=== PATIENT | male | born 1990 | race Caucasian/White ===

== ENCOUNTER 2018-01-06 15:26 | Inpatient (IN) ==
[2018-01-06 17:51] LABS: Baso # (Auto) 0.1 th/mm3 (0.0-0.2); Baso % (Auto) 0.6 % (0.0-2.0); Eos # (Auto) 0.1 th/mm3 (0.0-0.4); Eos % (Auto) 1.2 % (0.0-4.0); Hematocrit 45.5 % (39.0-51.0); Hemoglobin 15.9 gm/dL (13.0-17.0); Lymph % (Auto) 20.7 % (9.0-44.0); Mean Corpuscular Volume 88.4 fL (80.0-100.0); Mean Platelet Volume 7.7 fL (7.0-11.0); Mono # (Auto) 0.7 th/mm3 (0.0-0.9); Mono % (Auto) 7.6 % (0.0-8.0); Neut # (Auto) 6.6 th/mm3 (1.8-7.7); Neut % (Auto) 69.9 % (16.0-70.0); Platelet Count 259 th/mm3 (150-450); Red Blood Count 5.15 mil/mm3 (4.50-5.90); Red Cell Distribution Width 12.8 % (11.6-17.2); White Blood Count 9.5 th/mm3 (4.0-11.0)
[2018-01-06 18:10] LABS: Albumin 3.8 g/dL (3.4-5.0); Anion Gap 8 meq/L (5-15); Aspartate Aminotransferase 13 U/L (15-37); Blood Urea Nitrogen 16 mg/dL (7-18); Calcium 9.3 mg/dL (8.5-10.1); Carbon Dioxide 27.8 meq/L (21.0-32.0); Chloride 107 meq/L (98-107); Glomerular Filtration Rate 77 mL/min (>89); Glucose,Random 81 mg/dL (74-106); Potassium 3.4 meq/L (3.5-5.1); Sodium 143 meq/L (136-145)
[2018-01-06 18:14] LABS: Alanine Aminotransferase 26 U/L (12-78); Alkaline Phosphatase 76 U/L (45-117); Total Protein 7.8 g/dL (6.4-8.2)
--- NOTE | 2018-01-06 20:43 | ED ---
HPI General Chief complaint: Psychiatric Symptoms Stated complaint: Psych Eval Time Seen by Provider: 01/06/18 20:23 History of Present Illness HPI narrative: Patient is a 27-year-old male presents emergency department for evaluation of hearing voices. He states that he is hearing the WIFI talked to him. Patient states he was just released from [facility] on [place] yesterday as he was [place] because he was causing disturbance in a public park. The patient is homeless and was sleeping overnight in that part. He states his been in [place] for 7 years and traveled [facility]. Does not have a primary care physician her primary psychiatrist. States his been taking his Seroquel however he has an empty bottle on a prescription from [facility] which she has not yet filled. Denies any physical complaints , denies any chest pain shortness breath abdominal pain nausea vomiting diarrhea. Onset (ago): year(s) Severity: mild Pain Consistency: constant Relieving factors: none Exacerbating factors: none Related Data Home Medications Medication Instructions Recorded Confirmed propranolol 80 mg PO DAILY 12/28/17 12/28/17 quetiapine [Seroquel] 400 mg PO HS 12/28/17 12/28/17 topiramate [Topamax] 50 mg PO BID 12/28/17 12/28/17 Allergies Allergy/AdvReac Type Severity Reaction Status Date / Time penicillin G Allergy Severe Anaphylaxis Verified 12/28/17 23:53 Review of Systems Except as stated in HPI: all other systems reviewed are negative PMFSH Social History Social History Substance History: Active Abuse Smoking Status: Current every day smoker Tobacco Type: Cigarettes How Often Do You Have a Drink Containing Alcohol: Monthly or less Recent Travel in [facility] within the Last 8 Weeks: No Recent Out of Country Travel within the Last 8 Weeks: No Substance Abuse Detail Marijuana: Substance Use Status: Active Route Used Substance Abuse: Inhalation Immunization History Tetanus Immunization: >5 Years Hx Influenza Vaccine This Season: No Exam Narrative Exam Narrative: GENERAL: Well-developed well-nourished no obvious distress. SKIN: Focused skin assessment warm/dry. HEAD: Atraumatic. Normocephalic. EYES: Pupils equal and round. No scleral icterus. No injection or drainage. ENT: No nasal bleeding or discharge. Mucous membranes pink and moist. NECK: Trachea midline. No JVD. CARDIOVASCULAR: Regular rate and rhythm. No murmur appreciated. RESPIRATORY: No accessory muscle use. Clear to auscultation. Breath sounds equal bilaterally. GASTROINTESTINAL: Abdomen soft, non-tender, nondistended. Hepatic and splenic margins not palpable. MUSCULOSKELETAL: No obvious deformities. No clubbing. No cyanosis. No edema. NEUROLOGICAL: Awake and alert. No obvious cranial nerve deficits. Motor grossly within normal limits. Normal speech. PSYCHIATRIC: Endorses auditory hallucinations. Endorsed SI. No planning. Course Initial Documented Vital Signs Temperature 97.3 F L 01/06/18 15:29 Pulse Rate 107 H 01/06/18 15:29 Respiratory Rate 18 01/06/18 15:29 Blood Pressure 171/99 H 01/06/18 15:29 Pulse Oximetry 97 01/06/18 15:29 Last Documented Vital Signs Temperature 97.3 F L 01/06/18 15:29 Pulse Rate 107 H 01/06/18 15:29 Respiratory Rate 18 01/06/18 15:29 Blood Pressure 171/99 H 01/06/18 15:29 Pulse Oximetry 97 01/06/18 15:29 Medical Decision Making MDM Narrative Medical decision making narrative: Patient room to the emergency department, very vague complaints, only endorses suicidal ideation plan. Is a very vague suicidal ideation. I do not think he meets [place] criteria. He wants to see a psychiatrist on a voluntary basis. He is medically cleared to do so. Differential Diagnosis Differential Diagnosis: Poor social circumstance, schizophrenia, bipolar peer Lab Data Result diagrams: 01/06/18 16:20 01/06/18 16:20 Lab Results 01/06/18 01/06/18 01/07/18 Range/Units 16:20 16:20 00:20 WBC 9.5 (4.0-11.0) th/mm3 RBC 5.15 (4.50-5.90) mil/mm3 Hgb 15.9 (13.0-17.0) gm/dL Hct 45.5 (39.0-51.0) % MCV 88.4 (80.0-100.0) fL MCH 31.0 (27.0-34.0) pg MCHC 35.0 (32.0-36.0) % RDW 12.8 (11.6-17.2) % Plt Count 259 (150-450) th/mm3 MPV 7.7 (7.0-11.0) fL Neut % (Auto) 69.9 (16.0-70.0) % Lymph % (Auto) 20.7 (9.0-44.0) % [place] % (Auto) 7.6 (0.0-8.0) % Eos % (Auto) 1.2 (0.0-4.0) % Baso % (Auto) 0.6 (0.0-2.0) % Neut # (Auto) 6.6 (1.8-7.7) th/mm3 Lymph # (Auto) 2.0 (1.0-4.8) th/mm3 [place] # (Auto) 0.7 (0.0-0.9) th/mm3 Eos # (Auto) 0.1 (0.0-0.4) th/mm3 Baso # (Auto) 0.1 (0.0-0.2) th/mm3 WBC Differential . Differential Comment Auto diff final Sodium 143 (136-145) meq/L Potassium 3.4 L (3.5-5.1) meq/L Chloride 107 (98-107) meq/L Carbon Dioxide 27.8 (21.0-32.0) meq/L Anion Gap 8 (5-15) meq/L BUN 16 (7-18) mg/dL Creatinine 1.13 (0.60-1.30) mg/dL Estimated GFR 77 L (>89) mL/min Random Glucose 81 (74-106) mg/dL Calcium 9.3 (8.5-10.1) mg/dL Total Bilirubin 0.7 (0.2-1.0) mg/dL AST 13 L (15-37) U/L ALT 26 (12-78) U/L Alkaline Phosphatase 76 (45-117) U/L Total Protein 7.8 (6.4-8.2) g/dL Albumin 3.8 (3.4-5.0) g/dL Urine Color Yellow (Yellw/Straw) Urine Clarity Clear (Clear) Urine pH 5.0 (5.0-8.5) Ur Specific [place] 1.017 (1.002-1.035) Urine Protein Negative (Neg-Trace) mg/dL Urine Glucose (UA) Negative (Negative) mg/dL Urine Ketones Negative (Negative) mg/dL Urine Occult Blood Negative (Negative) Urine Nitrate Negative (Negative) Urine Bilirubin Negative (Negative) Urine Urobilinogen Less than 2 (Less than 2) mg/dL Ur Leukocyte Esterase Negative (Negative) Urine RBC Less than 1 (0-3) /hpf Urine WBC Less than 1 (0-5) /hpf Urine Mucus Few H (Occasional) /lpf Micro UA Comment Culture not ind Urine Culture Comments Culture not ind Discharge Plan Discharge Disposition Patient Disposition: 30 Still Patient Physicians Team ED Provider: Molina Victoria Primary Care Provider: Primary Care Suzettei,Darling Rxs /Orders / Referrals /Forms Prescriptions: No Action propranolol 80 mg Capsule,Extended Release 24 Hr 80 mg PO DAILY RF: 0 topiramate [Topamax] 50 mg Tablet 50 mg PO BID RF: 0 quetiapine [Seroquel] 400 mg Tablet 400 mg PO HS RF: 0 Status ED Status: Medically Cleared
[2018-01-07 01:11] LABS: Bilirubin,Urine Negative (Negative); Clarity,Urine Clear (Clear); Color,Urine Yellow (Yellw/Straw); Glucose,Urine (UA) Negative (Negative); Leukocyte Esterase,Urine Negative (Negative); Mucus,Urine Few /lpf (Occasional); Nitrite,Urine Negative (Negative); Specific Gravity,Urine 1.017 (1.002-1.035)
--- NOTE | 2018-01-07 14:18 | ED ---
HPI - Psych - General Source: patient Mode of arrival: ambulatory Limitations: no limitations - History of Present Illness MD complaint: other (paranoid) Onset (ago): day(s) Duration: constant, getting worse History of same: Yes Relieving factors: none Exacerbating factors: other (homelessness) Context: significant life stressor Associated psychiatric symptoms: auditory hallucinations, delusions Associated symptoms: shortness of breath Treatments prior to arrival: other (Patietn discharged from [facility] on january 05, 2018) - General Chief Complaint: Psychiatric Symptoms Stated Complaint: Psych Eval Time Seen by Provider: 01/07/18 13:25 - History of Present Illness HPI Narrative: History of Present Illness HPI narrative: Patient is a 27-year-old,single,male , homeless male, on SSI,no previous contact with [facility] psychiatry, with reported history of schizophrenia, multiple inpatient hospitalizations, who presents to emergency department for psychiatric evaluation and complaining of hearing voices. He states that he is hearing the WIFI talking to him and that people are watching him on camera. He believes that SMA was trying to poison him as well. he goes on to state that " I feel like I am going to snap and hurt someone because I cannot get the help I need. I don't think these medications are helping me". Patient states he was just released from [facility] yesterday as he was [place] [facility] because he was causing disturbance in a public park. The patient is homeless and was sleeping overnight in that park after he was released from sn[facility]. He states his been in [place] for 7 years and traveled all through the [facility]. ([place]) - Related Data Home Medications Medication Instructions Recorded Confirmed propranolol 80 mg PO DAILY 12/28/17 12/28/17 quetiapine [Seroquel] 400 mg PO HS 12/28/17 12/28/17 topiramate [Topamax] 50 mg PO BID 12/28/17 12/28/17 Allergies Allergy/AdvReac Type Severity Reaction Status Date / Time penicillin G Allergy Severe Anaphylaxis Verified 12/28/17 23:53 PMFSH - History History Provided By: Patient - Medical / Surgical Hx Neg / Unobtainable Medical Problems Denied: Yes (claims has hepatitis) Surgical History: No Previous Surgery - Medical History Medical History: Medical History (Last Reviewed 01/06/18 @ 20:16 by Yareli [place] RN) Hypertension Schizophrenia Seizures - Surgical History Surgical History: Surgical History (Last Reviewed 01/06/18 @ 20:16 by Yareli [place] RN) No history of previous surgery - Tobacco History Tobacco Use In Past 30 Days: Yes Smoking Status: Current every day smoker Tobacco Type: Cigarettes - Alcohol History How Often Do You Have a Drink Containing Alcohol: Monthly or less - Substance Use History Substance History: Active Abuse - Substance Use Type Marijuana Status: Active Route Used: Inhalation - Travel History Recent Travel in the [facility] Within the Last 8 Weeks: No Recent Travel Out of the Country Within the Last 8 Weeks: No - Immunization History Tetanus Immunization: >5 Years Hx Influenza Vaccine This Season: No Psychiatric History - Psychiatric History Psychiatric Treatment History: History of Psychiatric Treatment (reports has been taking psychiatric medication for the past 14 years. Does not provide name of previous providers.), History of Hospitalization in a Psychiatric Facility, History of Community Mental Health Treatment History of Inpatient Treatment: Yes (released from [facility] on january 05, 2018) Firearms in Home: No - Legal History Recent incarceration for loitering and resisting [employer] ([place]) - Family Psychiatric History None reported ([place]) Mental Status Examination Appearance: Disheveled Consciousness: Alert Orientation: x4 Motor Activity: Normal gait Speech: Unremarkable Language: Adequate Fund of Knowledge: Adequate Attention and Concentration: Adequate Memory: Unremarkable Mood: Anxious Affect: Anxious Thought Process & Associations: Intact Thought Content: Delusional (Wifi is talking to him, being watched on cameras) Hallucination Type: None Delusion Type: Paranoid Suicidal Ideation: No Suicidal Plan: No Homicidal Ideation: No Homicidal Plan: No Homicidal Intention: No Insight: Fair Judgment: Impulsive Initial Documented Vital Signs Temperature 97.3 F L 01/06/18 15:29 Pulse Rate 107 H 01/06/18 15:29 Respiratory Rate 18 01/06/18 15:29 Blood Pressure 171/99 H 01/06/18 15:29 Pulse Oximetry 97 01/06/18 15:29 Last Documented Vital Signs Temperature 97.9 F 01/07/18 09:30 Pulse Rate 67 01/07/18 09:30 Respiratory Rate 16 01/07/18 09:30 Blood Pressure 127/74 01/07/18 09:30 Pulse Oximetry 98 01/07/18 09:30 MDM - Psych - Lab Data Result diagrams: 01/06/18 16:20 01/06/18 16:20 - [facility] Narrative Medical decision making narrative: HPI narrative: Patient is a 27-year-old,single,male , homeless male with reported history of schizophrenia, multiple inpatient hospitalizations, who presents to emergency department voluntarily for psychiatric evaluation and complaining of hearing voices. He states that he is hearing the WIF[employer] talking to him and that people are watching him on camera. He believes that SMA was trying to poison him as well and is suspicious of taking the medication that was prescribed to him. He goes on to state that " I feel like I am going to snap and hurt someone because I cannot get the help I need. I don't think these medications are helping me" Vanda with no previous contact with [facility] psychiatry, reporting increase in paranoia, reporting feeling like he is going to snap and hurt someone due to believing that he is not getting the correct treatment or medication. Patient will be admitted to our inpatient psychiatric unit for further evaluation, safety and medication adjustment. ([place]) - Lab Data Lab Results 01/06/18 01/06/18 01/07/18 Range/Units 16:20 16:20 00:20 WBC 9.5 (4.0-11.0) th/mm3 RBC 5.15 (4.50-5.90) mil/mm3 Hgb 15.9 (13.0-17.0) gm/dL Hct 45.5 (39.0-51.0) % MCV 88.4 (80.0-100.0) fL MCH 31.0 (27.0-34.0) pg MCHC 35.0 (32.0-36.0) % RDW 12.8 (11.6-17.2) % Plt Count 259 (150-450) th/mm3 MPV 7.7 (7.0-11.0) fL Neut % (Auto) 69.9 (16.0-70.0) % Lymph % (Auto) 20.7 (9.0-44.0) % [place] % (Auto) 7.6 (0.0-8.0) % Eos % (Auto) 1.2 (0.0-4.0) % Baso % (Auto) 0.6 (0.0-2.0) % Neut # (Auto) 6.6 (1.8-7.7) th/mm3 Lymph # (Auto) 2.0 (1.0-4.8) th/mm3 [place] # (Auto) 0.7 (0.0-0.9) th/mm3 Eos # (Auto) 0.1 (0.0-0.4) th/mm3 Baso # (Auto) 0.1 (0.0-0.2) th/mm3 WBC Differential . Differential Comment Auto diff final Sodium 143 (136-145) meq/L Potassium 3.4 L (3.5-5.1) meq/L Chloride 107 (98-107) meq/L Carbon Dioxide 27.8 (21.0-32.0) meq/L Anion Gap 8 (5-15) meq/L BUN 16 (7-18) mg/dL Creatinine 1.13 (0.60-1.30) mg/dL Estimated GFR 77 L (>89) mL/min Random Glucose 81 (74-106) mg/dL Calcium 9.3 (8.5-10.1) mg/dL Total Bilirubin 0.7 (0.2-1.0) mg/dL AST 13 L (15-37) U/L ALT 26 (12-78) U/L Alkaline Phosphatase 76 (45-117) U/L Total Protein 7.8 (6.4-8.2) g/dL Albumin 3.8 (3.4-5.0) g/dL Urine Color Yellow (Yellw/Straw) Urine Clarity Clear (Clear) Urine pH 5.0 (5.0-8.5) Ur Specific [employer] 1.017 (1.002-1.035) Urine Protein Negative (Neg-Trace) mg/dL Urine Glucose (UA) Negative (Negative) mg/dL Urine Ketones Negative (Negative) mg/dL Urine Occult Blood Negative (Negative) Urine Nitrate Negative (Negative) Urine Bilirubin Negative (Negative) Urine Urobilinogen Less than 2 (Less than 2) mg/dL Ur Leukocyte Esterase Negative (Negative) Urine RBC Less than 1 (0-3) /hpf Urine WBC Less than 1 (0-5) /hpf Urine Mucus Few H (Occasional) /lpf Micro UA Comment Culture not ind Urine Culture Comments Culture not ind
[2018-01-07] MEDS ORDERED: Aluminum/Magnesium/Simethacone Susp 30 ML UDC PO PRN (14:24)
[2018-01-07] MEDS ORDERED: Bisacodyl 10 MG Supp RECTAL PRN (14:24)
[2018-01-07] MEDS ORDERED: LORazepam 1 MG Tablet PO PRN (14:24)
[2018-01-07 19:21] LABS: Amphetamine Screen,Urine Neg (Neg); Barbiturate Screen,Urine Neg (Neg); Cannabinoid Screen,Urine Pos (Neg); Cocaine Screen,Urine Neg (Neg)
[2018-01-07 19:24] LABS: Opiate Screen,Urine Neg (Neg)
[2018-01-07] MEDS ORDERED: Senna/Docusate Sodium 8.6/50 MG Tablet PO SCH (21:00)
[2018-01-08 11:22] LABS: Calcium 9.1 mg/dL (8.5-10.1); Carbon Dioxide 23.5 meq/L (21.0-32.0); Potassium 3.5 meq/L (3.5-5.1)
[2018-01-08 11:32] LABS: Chol/HDL Ratio 2.9 Ratio; HDL Cholesterol 55.8 mg/dL (40.0-60.0); Thyroid Stimulating Hormone 1.03 uIU/mL (0.358-3.740)
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
[2018-01-08] MEDS: QUEtiapine 25 MG Tablet PO SCH ×2 (13:39→17:09)
[2018-01-08 16:00] LABS: Hemoglobin A1c 5.6 % (4.3-6.0)
[2018-01-09] MEDS: Acetaminophen 325 MG Tablet PO PRN ×2 (08:14→13:15)
[2018-01-09] MEDS: QUEtiapine 25 MG Tablet PO SCH ×3 (08:15→15:33)
[2018-01-09 09:28] LABS: Calcium 9.2 mg/dL (8.5-10.1); Carbon Dioxide 26.2 meq/L (21.0-32.0); Potassium 4.1 meq/L (3.5-5.1)
[2018-01-09 09:32] LABS: Chol/HDL Ratio 2.76 Ratio; HDL Cholesterol 56.5 mg/dL (40.0-60.0)
--- NOTE | 2018-01-09 11:36 | P.PNPSY ---
Subjective Chief Complaint: Schizophrenia, Paranoid Remarks: Chart reviewed. Rounded on patient with BASSAM Morrison. Patient is in day room waiting for lunch. He endorses some anxiety. He denies any auditory or visual hallucinations. Denies paranoia. Denies delusions. States that he slept really well last night and it is the first time he has feels rested in a long time. Staff reports that he is to religiously preoccupied. Appetite is good patient is medication compliant. Patient encouraged to participate in unit activities. Review of Systems All other systems reviewed negative except as stated in HPI Mental Status Examination Appearance: Appropriate Consciousness: Alert Orientation: x4 Motor Activity: Normal gait Speech: Unremarkable Language: Adequate Fund of Knowledge: Adequate Attention and Concentration: Adequate Memory: Unremarkable Mood: Anxious Affect: Other (Slight increased range and intensity) Thought Process & Associations: Intact Thought Content: Appropriate Hallucination Type: None Suicidal Ideation: No Suicidal Plan: No Suicidal Intention: No Homicidal Ideation: No Homicidal Plan: No Homicidal Intention: No Insight: Fair Judgment: Impulsive Assessment and Plan - Assessment (1) Schizophrenia, paranoid, chronic Code(s): F20.0 - Paranoid schizophrenia Status: Acute - Plan Plan: Estimated LOS: [] days At this time patient meets criteria for continued inpatient psychiatric hospitalization on a voluntary basis we will start the patient back on Seroquel as mentioned above. Hopeless be fairly short stay we can return to the community with follow-up [facility] act Justification for Continued Inpatient Stay: Patient is at risk for decompensation if placed in lower level of care. Discharge Planning: Patient is established at [facility] and will be referred to the outpatient clinic at time of discharge. Request Healthcare Surrogate/Guardian Advocate?: No
--- NOTE | 2018-01-09 15:20 | ECG ---
Date Performed: 01/08/2018 Time Performed: 13:34:42 PTAGE: 27 years EKG: Sinus rhythm POSSIBLE RIGHT VENTRICULAR CONDUCTION DELAY BORDERLINE ECG NO PREVIOUS TRACING DOCTOR: Miguelangel Carrillo Interpretating Date/Time 01/09/2018 15:19:12
[2018-01-09] MEDS: Aluminum/Magnesium/Simethacone Susp 30 ML UDC PO PRN (15:33)
[2018-01-10] MEDS: QUEtiapine 25 MG Tablet PO SCH ×3 (08:57→16:00)
[2018-01-10 12:05] LABS: Hemoglobin A1c 5.7 % (4.3-6.0)
--- NOTE | 2018-01-10 13:16 | P.PNPSY ---
Subjective Chief Complaint: Schizophrenia, Paranoid Remarks: Reviewed electronic medical records and discussed case with staff. Follow-up was conducted in patient's room. His nurse reports that he has been seclusive, compliant with medications and with no behavioral issues. Patient found lying in his bed. He reports that he slept well has good appetite. He does report increased anxiety and states that the Atarax has not been working. He endorses auditory and visual hallucinations but denies suicidal or homicidal ideation. Mental Status Examination Appearance: Appropriate Consciousness: Alert Orientation: x4 Motor Activity: Normal gait Speech: Unremarkable Language: Adequate Fund of Knowledge: Adequate Attention and Concentration: Adequate Memory: Unremarkable Mood: Anxious Affect: Other (Slight increased range and intensity) Thought Process & Associations: Intact Thought Content: Appropriate Hallucination Type: None Delusion Type: Paranoid Suicidal Ideation: No Suicidal Plan: No Suicidal Intention: No Homicidal Ideation: No Homicidal Plan: No Homicidal Intention: No Insight: Fair Judgment: Impulsive Assessment and Plan - Assessment (1) Schizophrenia, paranoid, chronic Code(s): F20.0 - Paranoid schizophrenia Status: Acute - Plan Plan: Patient will be reevaluated tomorrow by the attending psychiatrist. Continue with current treatment plan. Justification for Continued Inpatient Stay: Moving this patient to a less restrictive environment would likely result in decompensation. Request Healthcare Surrogate/Guardian Advocate?: No
[2018-01-10] MEDS: Acetaminophen 325 MG Tablet PO PRN (17:06)
[2018-01-11] MEDS: QUEtiapine 25 MG Tablet PO SCH ×3 (09:20→16:06)
[2018-01-11] MEDS: Acetaminophen 325 MG Tablet PO PRN (14:21)
[2018-01-11] MEDS: Aluminum/Magnesium/Simethacone Susp 30 ML UDC PO PRN (16:06)
--- NOTE | 2018-01-11 18:44 | P.PNPSY ---
Subjective Chief Complaint: Schizophrenia, Paranoid Remarks: Reviewed electronic medical records and discussed case with staff. Patient's follow-up was conducted in the hallway. Patient was seen wandering around the hallway internally stimulated and quite irritated. Reports that he is in the middle of a "spiritual warfare". His nurse reports he has been complaining of somatic type pains all day and of increased anxiety. He reports that the Atarax does nothing for him. Prior to seeing him I had increased the patient's nighttime dose of Seroquel to 300 mg based on his nurses report of his behaviors. During my follow-up interview he states "why do not you just increase my Seroquel to 800 mg give me prescription and kick me out of here, I am ready to go". Not sure if his increased irritability is a result of his lack of benzos and opiates or if it is due to his paranoid delusions. However, his attending psychiatrist Dr. Fitzpatrick specifically documented that he did not want him to have benzodiazepines or opiates this visit. Will monitor how he does on the increased dosage of Seroquel. Mental Status Examination Appearance: Appropriate Consciousness: Alert Orientation: x4 Motor Activity: Normal gait Speech: Unremarkable Language: Adequate Fund of Knowledge: Adequate Attention and Concentration: Adequate Memory: Unremarkable Mood: Anxious Affect: Other (Slight increased range and intensity) Thought Process & Associations: Intact Thought Content: Appropriate Hallucination Type: None Delusion Type: Paranoid Suicidal Ideation: No Suicidal Plan: No Suicidal Intention: No Homicidal Ideation: No Homicidal Plan: No Homicidal Intention: No Insight: Fair Judgment: Impulsive Assessment and Plan - Assessment (1) Schizophrenia, paranoid, chronic Code(s): F20.0 - Paranoid schizophrenia Status: Acute - Plan Plan: Patient will be reevaluated tomorrow by an attending psychiatrist. Continue with current treatment plan. His nighttime dosage of Seroquel has been increased from 200-300 mg. He continues to report paranoid delusions and bizarre thoughts. Justification for Continued Inpatient Stay: Moving this patient to a less restrictive environment would likely result in decompensation. Request Healthcare Surrogate/Guardian Advocate?: No
[2018-01-12] MEDS: QUEtiapine 25 MG Tablet PO SCH ×3 (07:39→16:36)
[2018-01-12] MEDS: Acetaminophen 325 MG Tablet PO PRN (08:54)
[2018-01-12] MEDS ORDERED: Haloperidol Inj 5 MG/ML Ampul IM ONE (09:48)
[2018-01-12] MEDS ORDERED: Haloperidol Inj 5 MG/ML Ampul ONE (09:51)
--- NOTE | 2018-01-12 17:26 | P.PNPSY ---
Subjective Chief Complaint: Schizophrenia, Paranoid Remarks: Patient seen for follow up; chart reviewed. Discussion with nursing staff reported patient continues to be noted to be internally preoccupied, slept but continues with disorganization. Patient was found lying on hospital bed, states feeling "not so good", endorsing continued feeling of "something poking at me" which happens often and aggravates him and increasing his anxiety. He reports having slept better last evening with the recent increase of Seroquel. He states continued AH which are "random" as well command AH. Patient later began to scream in his room stating that he is feeling more aggravated with perceptual disturbances and required Haldol 5mg IM and Ativan 2mg IM for agitation. Review of Systems All other systems reviewed negative except as stated in HPI Mental Status Examination Appearance: Appropriate Consciousness: Alert Orientation: x4 Motor Activity: Normal gait Speech: Unremarkable Language: Adequate Fund of Knowledge: Adequate Attention and Concentration: Adequate Memory: Unremarkable Mood: Anxious Affect: Other (Slight increased range and intensity) Thought Process & Associations: Intact Thought Content: Appropriate Hallucination Type: None Delusion Type: Paranoid Suicidal Ideation: No Suicidal Plan: No Suicidal Intention: No Homicidal Ideation: No Homicidal Plan: No Homicidal Intention: No Insight: Fair Judgment: Impulsive Assessment and Plan - Assessment (1) Schizophrenia, paranoid, chronic Code(s): F20.0 - Paranoid schizophrenia Status: Acute - Plan Plan: Patient continues with auditory hallucinations, increased anxiety due to the same which patient had required Haldol 5 mg IM 1, Ativan 2 mg IM 1 for agitation. We will continue quetiapine to 50 mg p.o. 3 times daily and increase to 350 mg p.o. at bedtime for psychosis. Continue rest of medications. Continue to monitor mood and behavior. Discharge planning in progress. Justification for Continued Inpatient Stay: At risk of further decompensation a lower level of care. Request Healthcare Surrogate/Guardian Advocate?: No
[2018-01-12] MEDS: QUEtiapine 100 MG Tablet PO SCH (21:20)
[2018-01-13] MEDS: QUEtiapine 25 MG Tablet PO SCH ×2 (09:27→12:42)
[2018-01-13] MEDS: Acetaminophen 325 MG Tablet PO PRN (09:29)
--- NOTE | 2018-01-13 13:14 | P.PNPSY ---
Subjective Chief Complaint: Schizophrenia, Paranoid Remarks: Patient seen and [place] with Counselor Hafsa and nurse Ina, chart reviewed , patient compliant medications. There is needed a few as needed's to help combat the auditory hallucinations. Today patient states the voices continue as intense as on admission. He does deny suicidality homicidality though he also does acknowledge and intrusiveness threatening nature of the voices. He states there is anger also involved with this but he has control of that. It appears he did feel some relief with as needed Haldol yesterday. We did discuss medications. I will discontinue the daytime schedule Seroquel but continue the at bedtime Seroquel. I will add Haldol 10 mg p.o. 8 AM and 4 PM. Continue to work with finding placement of a local [facility] Review of Systems All other systems reviewed negative except as stated in HPI Mental Status Examination Appearance: Appropriate Consciousness: Alert Orientation: x4 Motor Activity: Normal gait Speech: Unremarkable Language: Adequate Fund of Knowledge: Adequate Attention and Concentration: Adequate Memory: Unremarkable Mood: Anxious, Irritable (Slightly) Affect: Other (Slight increased range and intensity) Thought Process & Associations: Intact Thought Content: Appropriate Hallucination Type: None, Auditory (Multiple threatening irritating) Delusion Type: Paranoid Suicidal Ideation: No Suicidal Plan: No Suicidal Intention: No Homicidal Ideation: No Homicidal Plan: No Homicidal Intention: No Insight: Adequate Judgment: Adequate Assessment and Plan - Assessment (1) Schizophrenia, paranoid, chronic Code(s): F20.0 - Paranoid schizophrenia Status: Acute - Plan Plan: Patient remained psychotic paranoid with auditory hallucinations please see medication adjustments above Justification for Continued Inpatient Stay: At this time patient would decompensate a place to a lower level of care Discharge Planning: To be determined continue to work with exploring [facility] placement Request Healthcare Surrogate/Guardian Advocate?: No
[2018-01-13] MEDS: QUEtiapine 100 MG Tablet PO SCH (21:16)
--- NOTE | 2018-01-14 10:14 | P.PNPSY ---
Subjective Chief Complaint: Schizophrenia, Paranoid Remarks: Patient seen in his room with nurse Ina, chart reviewed, patient compliant medication. Patient slept better last night. He states the voices are rapidly diminishing. He denies suicidality. He continues to consider [facility] placement. For now continue treatment Review of Systems All other systems reviewed negative except as stated in HPI Mental Status Examination Appearance: Appropriate Consciousness: Alert Orientation: x4 Motor Activity: Normal gait Speech: Unremarkable Language: Adequate Fund of Knowledge: Adequate Attention and Concentration: Adequate Memory: Unremarkable Mood: Anxious, Irritable (Slightly) Affect: Other (Slight increased range and intensity) Thought Process & Associations: Intact Thought Content: Appropriate Hallucination Type: Auditory (Voices are starting to diminish) Delusion Type: Paranoid (Decreasing somewhat) Suicidal Ideation: No Suicidal Plan: No Suicidal Intention: No Homicidal Ideation: No Homicidal Plan: No Homicidal Intention: No Insight: Adequate Judgment: Adequate Assessment and Plan - Assessment (1) Schizophrenia, paranoid, chronic Code(s): F20.0 - Paranoid schizophrenia Status: Acute - Plan Plan: Patient continues compliant with medication. Is tolerating the Haldol without difficulty. His psychosis is slowly softening and lifting. For now continue treatment Justification for Continued Inpatient Stay: At this time patient would decompensate if placed in a lower level of care Discharge Planning: To be determined consider [facility] placement Request Healthcare Surrogate/Guardian Advocate?: No
[2018-01-14] MEDS: QUEtiapine 100 MG Tablet PO SCH (20:44)
--- NOTE | 2018-01-15 09:18 | P.PNPSY ---
Subjective Chief Complaint: Schizophrenia, Paranoid Remarks: Patient seen in his room with RN. Chart reviewed. Patient calm patient discussed with nurse. He states the voices persist with little change though his anger and temper are calmer and he is in more control. He does deny suicidality. Says he slept somewhat better. For now we will adjust patient's Haldol to 10 mg 8 AM and 8 PM and 5 mg at 2 PM Review of Systems All other systems reviewed negative except as stated in HPI Mental Status Examination Appearance: Appropriate Consciousness: Alert Orientation: x4 Motor Activity: Normal gait Speech: Unremarkable Language: Adequate Fund of Knowledge: Adequate Attention and Concentration: Adequate Memory: Unremarkable Mood: Anxious, Irritable (Slightly) Affect: Other (Slight increased range and intensity) Thought Process & Associations: Intact Thought Content: Appropriate Hallucination Type: Auditory (Voices are starting to diminish) Delusion Type: Paranoid (Decreasing somewhat) Suicidal Ideation: No Suicidal Plan: No Suicidal Intention: No Homicidal Ideation: No Homicidal Plan: No Homicidal Intention: No Insight: Adequate Judgment: Adequate Assessment and Plan - Assessment (1) Schizophrenia, paranoid, chronic Code(s): F20.0 - Paranoid schizophrenia Status: Acute - Plan Plan: Patient remained psychotic though the paranoia and the temperature softening somewhat please see medication adjustments above Justification for Continued Inpatient Stay: At this time patient would decompensate a place to the lower level of care Discharge Planning: To be determined Request Healthcare Surrogate/Guardian Advocate?: No
[2018-01-15] MEDS: Haloperidol 5 MG Tablet PO SCH (13:18)
[2018-01-15] MEDS: QUEtiapine 100 MG Tablet PO SCH (21:03)
[2018-01-16] MEDS: Haloperidol 5 MG Tablet PO SCH (14:22)
--- NOTE | 2018-01-16 15:17 | P.PNPSY ---
Subjective Chief Complaint: Schizophrenia, Paranoid Remarks: Patient was seen and case discussed with nursing. Patient remains quite anxious. He is concerned about his discharge. Possibility of internal preoccupation. Patient says that he is paranoid that he feels that this is at baseline. Denies auditory or visual hallucinations. Compliant with medications and behaving well on the unit Mental Status Examination Appearance: Appropriate Consciousness: Alert Orientation: x4 Motor Activity: Normal gait Speech: Unremarkable Language: Adequate Fund of Knowledge: Adequate Attention and Concentration: Adequate Memory: Unremarkable Mood: Anxious, Irritable (Slightly) Affect: Other (Slight increased range and intensity) Thought Process & Associations: Intact Thought Content: Appropriate Hallucination Type: Auditory (Voices are starting to diminish) Delusion Type: Paranoid (Decreasing somewhat) Suicidal Ideation: No Suicidal Plan: No Suicidal Intention: No Homicidal Ideation: No Homicidal Plan: No Homicidal Intention: No Insight: Adequate Judgment: Adequate Assessment and Plan - Assessment (1) Schizophrenia, paranoid, chronic Code(s): F20.0 - Paranoid schizophrenia Status: Acute - Plan Plan: Continue current treatment plan Justification for Continued Inpatient Stay: Patient would decompensate in a less restrictive setting Request Healthcare Surrogate/Guardian Advocate?: No
[2018-01-16] MEDS: QUEtiapine 100 MG Tablet PO SCH (22:11)
--- NOTE | 2018-01-17 12:32 | P.PNPSY ---
Subjective Chief Complaint: Schizophrenia, Paranoid Remarks: Patient was seen and case discussed with nursing. Patient is pleasant and cooperative with exam. Patient feels "bored." Per nursing he had auditory hallucinations overnight which he denies today for me. Minimally engaged during the interview. More seclusive today. Compliant with medications and behaving well on the unit Mental Status Examination Appearance: Appropriate Consciousness: Alert Orientation: x4 Motor Activity: Normal gait Speech: Unremarkable Language: Adequate Fund of Knowledge: Adequate Attention and Concentration: Adequate Memory: Unremarkable Mood: Anxious, Irritable (Slightly) Affect: Other (Slight increased range and intensity) Thought Process & Associations: Intact Thought Content: Appropriate Hallucination Type: Auditory (Overnight) Delusion Type: Paranoid (Decreasing somewhat) Suicidal Ideation: No Suicidal Plan: No Suicidal Intention: No Homicidal Ideation: No Homicidal Plan: No Homicidal Intention: No Insight: Adequate Judgment: Adequate Assessment and Plan - Assessment (1) Schizophrenia, paranoid, chronic Code(s): F20.0 - Paranoid schizophrenia Status: Acute - Plan Plan: Continue current treatment plan Justification for Continued Inpatient Stay: Patient would decompensate in a less restrictive setting Request Healthcare Surrogate/Guardian Advocate?: No
[2018-01-17] MEDS: Haloperidol 5 MG Tablet PO SCH (13:14)
[2018-01-17] MEDS: Acetaminophen 325 MG Tablet PO PRN (13:23)
[2018-01-17 17:29] VITALS: BP 127/55; PULSE 79; RESP 17; TEMP 97.5; O2SAT 93
[2018-01-17] MEDS: QUEtiapine 100 MG Tablet PO SCH (21:53)
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
== END 2018-01-18 14:20 | disposition home or self-care (01) ==
LOC: NEPD 15:26 → NEDA 01-07 14:38 → H260 01-07 16:04
PROVIDERS: ADMIT Psychiatry & Neurology Psychiatry; ATTEND Psychiatry & Neurology Psychiatry

== ENCOUNTER 2018-05-15 20:27 | Inpatient (IN) ==
[2018-05-15] MEDS ORDERED: Melatonin 5 MG Tablet PO PRN (21:50)
[2018-05-15] MEDS ORDERED: Aluminum/Magnesium/Simethacone Susp 30 ML UDC PO PRN (21:50)
[2018-05-16] MEDS: Acetaminophen 325 MG Tablet PO PRN ×2 (01:30→08:23)
[2018-05-16 08:33] LABS: Baso % (Auto) 0.5 % (0.0-2.0); Eos # (Auto) 0.1 th/mm3 (0.0-0.4); Eos % (Auto) 1.6 % (0.0-4.0); Hematocrit 40.8 % (39.0-51.0); Hemoglobin 14.1 gm/dL (13.0-17.0); Lymph # (Auto) 2.4 th/mm3 (1.0-4.8); Mean Corpuscular HGB Conc 34.6 % (32.0-36.0); Mean Corpuscular Hemoglobin 31.9 pg (27.0-34.0); Mean Corpuscular Volume 92.1 fL (80.0-100.0); Mean Platelet Volume 8.2 fL (7.0-11.0); Mono # (Auto) 0.5 th/mm3 (0.0-0.9); Mono % (Auto) 5.2 % (0.0-8.0); Neut % (Auto) 66.7 % (16.0-70.0); Platelet Count 245 th/mm3 (150-450); Red Blood Count 4.43 mil/mm3 (4.50-5.90); Red Cell Distribution Width 13.4 % (11.6-17.2); White Blood Count 9.1 th/mm3 (4.0-11.0)
[2018-05-16 08:59] LABS: Alanine Aminotransferase 76 U/L (12-78); Albumin 3.6 g/dL (3.4-5.0); Anion Gap 7 meq/L (5-15); Aspartate Aminotransferase 32 U/L (15-37); Blood Urea Nitrogen 14 mg/dL (7-18); Calcium 8.7 mg/dL (8.5-10.1); Carbon Dioxide 25.2 meq/L (21.0-32.0); Chloride 109 meq/L (98-107); Cholesterol 138 mg/dL (120-200); Glomerular Filtration Rate 89 mL/min (>89); Glucose,Random 126 mg/dL (74-106); Sodium 141 meq/L (136-145); Triglycerides 90 mg/dL (42-150)
[2018-05-16 09:01] LABS: Alkaline Phosphatase 68 U/L (45-117); HDL Cholesterol 47.5 mg/dL (40.0-60.0); LDL Cholesterol,Calculated 73 mg/dL (0-99); Total Protein 7.7 g/dL (6.4-8.2)
[2018-05-16 09:39] LABS: Hemoglobin A1c 5.3 % (4.3-6.0)
[2018-05-16] MEDS: FLUoxetine 20 MG Capsule PO SCH (10:27)
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
[2018-05-16] MEDS: Famotidine 20 MG Tablet PO SCH (20:04)
[2018-05-17] MEDS: Famotidine 20 MG Tablet PO SCH ×2 (08:25→20:45)
[2018-05-17] MEDS: FLUoxetine 20 MG Capsule PO SCH (08:25)
[2018-05-17] MEDS: Propranolol LA 60 MG Capsule PO SCH (08:25)
--- NOTE | 2018-05-17 10:15 | P.PNPSY ---
Subjective Remarks: Patient seen and examined with nurse. Chart reviewed. Case discussed with nursing staff. Patient reportedly had an uneventful evening and has been medication compliant. He told the nurse that Lucifer has forgotten about him. On my examination today, the patient says that he slept well. He confirms that he was not bothered by Lucifer or any demons overnight. He denies any suicidal or homicidal ideation. He does complain of some vivid dreams, but these were reportedly not terribly distressing for him. Denies side effects from medications. Agreeable to titration of Seroquel and notes that he took as much as 400 mg in the past. Complains of a mild headache without any reported red flag symptoms. No other physical complaints. Vital Signs Temp Pulse Resp BP Pulse Ox 05/17/18 06:00 98.0 F 78 16 111/69 05/16/18 16:44 97.4 F L 81 18 126/70 99 Intake and Output 05/16/18 05/17/18 05/17/18 22:59 06:59 14:59 Other: Weight 103.8 kg Labs reviewed. Review of Systems All other systems reviewed negative except as stated in HPI Mental Status Examination Appearance: Appropriate Consciousness: Alert Orientation: x4 Motor Activity: Normal gait, Other (No motor abnormalities noted) Speech: Unremarkable Language: Adequate Fund of Knowledge: Adequate Attention and Concentration: Adequate Memory: Unremarkable (Grossly intact on clinical exam) Mood: Other (Fair) Affect: Blunt Thought Process & Associations: Intact, Logical, Linear Thought Content: Delusional Hallucination Type: None Delusion Type: Other (Bahai) Suicidal Ideation: No Suicidal Plan: No Suicidal Intention: No Homicidal Ideation: No Homicidal Plan: No Homicidal Intention: No Insight: Fair Judgment: Impulsive Assessment and Plan - Assessment (1) Schizophrenia, paranoid type Code(s): F20.0 - Paranoid schizophrenia Status: Acute - Plan Plan: Titrate Seroquel to 300 mg at bedtime to target residual psychiatric symptoms. Symptomatic treatment for headache and monitor. Continue to monitor on the inpatient unit. Continue other medications and care as ordered. Justification for Continued Inpatient Stay: High risk for decompensation and less restrictive environment. Impairment in reality construction. Medication changes. Discharge Planning: Pending psychiatric stabilization. Possible mid week discharge. Request Healthcare Surrogate/Guardian Advocate?: No
[2018-05-17] MEDS: Acetaminophen 325 MG Tablet PO PRN (17:44)
[2018-05-18] MEDS: Famotidine 20 MG Tablet PO SCH ×2 (08:09→20:23)
[2018-05-18] MEDS: Propranolol LA 60 MG Capsule PO SCH (08:09)
[2018-05-18] MEDS: FLUoxetine 20 MG Capsule PO SCH (08:09)
--- NOTE | 2018-05-18 11:15 | P.PNPSY ---
Subjective Remarks: Patient seen and examined with nurse. Chart reviewed. Case discussed with nursing staff. Case discussed in treatment team. Counselor is working on placement options for the patient. On my examination today, the patient reports that he is thinking clearly. No SI or HI. Slept well overnight. No psychotic material. Patient continues to have some complaints of paresthesias in his legs but now attributes them to a physiologic, not a supernatural cause. No reported issues with bowel or bladder incontinence or other red flag symptoms. I have recommended that the patient follow-up with his primary care doctor for this issue. He denies side effects from medications. No physical complaints otherwise. Vital Signs Temp Pulse Resp BP Pulse Ox 05/18/18 05:46 98.0 F 86 18 116/66 97 05/17/18 15:49 98.0 F 68 18 97 Labs reviewed. No new labs. Hemoglobin A1c was within normal limits. Review of Systems All other systems reviewed negative except as stated in HPI Mental Status Examination Appearance: Appropriate Consciousness: Alert Orientation: x4 Motor Activity: Normal gait, Other (No motoric abnormalities noted) Speech: Unremarkable Language: Adequate Fund of Knowledge: Adequate Attention and Concentration: Adequate Memory: Unremarkable (Grossly intact on clinical exam) Mood: Appropriate Affect: Appropriate Thought Process & Associations: Intact, Logical, Linear Thought Content: Appropriate Hallucination Type: None Delusion Type: None Suicidal Ideation: No Homicidal Ideation: No Mental Status Exam Remarks: Insight and judgment seem fair. Assessment and Plan - Assessment (1) Schizophrenia, paranoid type Code(s): F20.0 - Paranoid schizophrenia Status: Acute - Plan Plan: Continue increased dose of Seroquel as ordered. Continue to monitor on the inpatient unit. Continue other medications and care as ordered. Justification for Continued Inpatient Stay: Risk for decompensation in less restrictive environment. Discharge Planning: Anticipate discharge tomorrow, Thursday. Request Healthcare Surrogate/Guardian Advocate?: No
--- NOTE | 2018-05-18 16:15 | XR ---
EXAM DATE: 05/18/2018 4:10 PM EST AGE/SEX: 27 years / Male INDICATIONS: Shortness of breath. CLINICAL DATA: This is the patient's initial encounter. Patient reports that signs and symptoms have been present for 1 day and indicates a pain score of 0/10. MEDICAL/SURGICAL HISTORY: None. None. COMPARISON: No prior exams available for comparison. FINDINGS: A single AP view of the chest demonstrates the lungs to be symmetrically aerated without evidence of mass, infiltrate or effusion. The cardiomediastinal contours are unremarkable. Osseous structures a re intact. CONCLUSION: No acute cardiopulmonary disease Electronically signed by: Zach Patel MD 05/18/2018 4:14 PM EST
[2018-05-19] MEDS: Propranolol LA 60 MG Capsule PO SCH (09:49)
[2018-05-19] MEDS: FLUoxetine 20 MG Capsule PO SCH (09:49)
[2018-05-19] MEDS: Famotidine 20 MG Tablet PO SCH (09:49)
--- NOTE | 2018-05-19 09:53 | P.DSPSY ---
Psychiatry Discharge Summary Inpatient Psychiatric care?: Yes Advance Directives: No Mental Health Advance Directive: No Health Care Proxy: No - Admission Admission Date: May 15, 2018 21:30 - Admission Diagnosis (1) Schizophrenia, paranoid type Code(s): F20.0 - Paranoid schizophrenia Brief History: Mr. Ellis is a 27-year-old male with a history of schizophrenia, who presents in transfer from [facility] under a [place] alleging that the patient stated that he wants to kill himself and has a plan. Documentation from outside hospital reviewed. Reviewing our electronic medical record, I note that the patient was seen in consultation by the psychiatric nurse practitioner 2 days ago in the ED and also has a history of previous admissions, most recently in December under Dr. Fitzpatrick. The patient seen and examined with nurse. Chart reviewed. Case discussed with nursing staff. No behavioral issues noted overnight. On my examination today, the patient is calm and cooperative. He says that he was recently hospitalized at the [facility] at [facility] and was started on Abilify and Abilify Maintena. He says that despite the initiation of these medications, he continues to be troubled by spirits of Satan and Lucifer, Jose Alfredo and Richard. He says that these forces are harassing him when he is trying to sleep and, in particular, they prick him in his feet. He says that he feels like he is getting shot at. He says that he has suicidal ideation as a consequence of these delusions and perceptual disturbances. He says that his plan is to get a gun and blow his brains out. He does contract for safety on the inpatient unit. Affect is somewhat blunted. No reported mood symptoms. He does complain of poor sleep and says that he uses Seroquel to help with this. He also uses hydroxyzine to manage his anxiety. The remainder of the psychiatric ROS is negative. No acute physical complaints, except as above. Tobacco Use In Past 30 Days: Yes How Often Do You Have a Drink Containing Alcohol: Monthly or less Hospital Course: Patient was admitted to a locked, inpatient psychiatric unit. Appropriate precautions were in place throughout patient's hospital stay. Patient was seen and examined on the unit by psychiatry and also visited by counselor. Psychotropic medications were adjusted. Patient's Seroquel was titrated at bedtime for management of his presenting psychotic symptoms. Patient tolerated medication changes well without side effects. Patient had improvement in presenting psychiatric symptomatology during the course of his hospital stay. There was no evidence of any suicidality or homicidality on the inpatient unit. There was no evidence of self-care deficit. Working with the patient, counselor has arranged for placement in an assisted living level of care. On the day of discharge: Patient seen and examined with nurse. Chart reviewed. Case discussed with nursing staff. Patient noted to be pleasant and cooperative. No reported behavioral issues noted. Case discussed with counselor. On my examination today, the patient feels ready for discharge from the inpatient psychiatric unit today. He denies any suicidal or homicidal ideation, intent or plan. Mood is good, and I can elicit no depressive or hypomanic/manic symptoms. He denies any audiovisual hallucinations. I can elicit no delusional material. In particular, the patient no longer believes that Lucifer or another demons are pricking him in his feet. He is sleeping well. He denies side effects from medications. Teaching provided regarding discharge medication regimen, and I have encouraged patient to discuss with his outpatient provider how best to taper off oral Abilify now that he is on Abilify Maintena. He continues to have some chiefly lower extremity paresthesias, but he attributes this to possible physiologic cause, and I have encouraged him to follow up with his primary care doctor for further assessment and management of this issue. No other physical complaints. Suicide and violence risk assessment on day of discharge both suggest lower imminent risk from mental illness, and the patient's level of function is adequate for outpatient care. The patient has maximized benefit from this inpatient psychiatric hospital stay. He will be discharged today to the [facility] living facility with psychiatric follow-up as arranged by the counselor. The patient is also to follow-up with primary care. I have counseled the patient to abstain from substances of abuse. I have counseled the patient regarding warning signs for need to return to the psychiatric emergency room as part of a general safety plan. - Discharge Discharge Date: 05/19/18 - Discharge Diagnosis (1) Schizophrenia, paranoid, chronic Diagnosis: Principal (Stabilized) Code(s): F20.0 - Paranoid schizophrenia Status: Acute Discharge Disposition: Assisted Living Facility - Discharge Instructions Discharge Diet: Regular Diet Activities You Can Perform: Weight Bearing As Tolerat - Discharge Time <= 30 minutes Mental Status Examination Appearance: Appropriate Consciousness: Alert Orientation: x4 Motor Activity: Normal gait, Other (No hand tremor, no cogwheeling, no dystonias , no dyskinesias, no other motoric abnormalities noted.) Speech: Unremarkable Language: Adequate Fund of Knowledge: Adequate Attention and Concentration: Adequate Memory: Unremarkable (Grossly intact on clinical exam) Mood: Appropriate Affect: Appropriate Thought Process & Associations: Intact, Logical, Goal directed, Linear Thought Content: Appropriate Hallucination Type: None Delusion Type: None Suicidal Ideation: No Suicidal Plan: No Suicidal Intention: No Homicidal Ideation: No Homicidal Plan: No Homicidal Intention: No Mental Status Exam Remarks: Insight and judgment are fair Discharge/Advance Care Plan - Results Vital Signs: Last Vital Signs Temp 97.3 F L 05/19/18 05:39 Pulse 66 05/19/18 05:39 Resp 18 05/19/18 05:39 BP 107/54 L 05/19/18 05:39 Pulse Ox 96 05/19/18 05:39 Lab Results: Laboratory Results Hemoglobin A1c 5.3 % (4.3-6.0) 05/16/18 08:02 Triglycerides 90 mg/dL (42-150) 05/16/18 08:02 Cholesterol 138 mg/dL (120-200) 05/16/18 08:02 LDL Cholesterol, Calc 73 mg/dL (0-99) 05/16/18 08:02 HDL Cholesterol 47.5 mg/dL (40.0-60.0) 05/16/18 08:02 Summary of Procedures: None done. Imaging: ITS Impressions Chest X-Ray 05/18/18 00:00 CONCLUSION: No acute cardiopulmonary disease Pending Results: None - Medications Number of antipsychotic medications at discharge: 2 (Abilify PO/Maintena + Seroquel) Appropriate use of more than 1 antipsychotic med: Justification other than those in allowable values 1-3, document here: (Outpatient regimen consists of 2 antipsychotics) - Discharge Care Plan Goals to Promote Your Health: * To prevent worsening of your condition and complications * To maintain your health at the optimal level Directions to Meet Your Goals: Take your medications as prescribed Follow your dietary instruction Follow activity as directed Keep your appointments as scheduled Take your immunizations and boosters as scheduled If your symptoms worsen call your PCP, if no PCP go to Urgent Care Center or Emergency Room For 12/01 questions related to your inpatient stay or results of tests pending at discharge, please contact Dr. Alex Goode MD at [phone] Smoking is Dangerous to Your Health. Avoid second hand smoking
== END 2018-05-19 12:20 ==
LOC: H270 21:30
PROVIDERS: ADMIT Psychiatry & Neurology Psychiatry; ATTEND Psychiatry & Neurology Psychiatry